=== PATIENT | female | born 1970 | race Hispanic/Latino ===

== ENCOUNTER 2022-09-29 01:11 | Emergency (ER) | payer SELFPAY ==
[2022-09-29 01:49] LABS: Absolute Lymphocytes (CBC) 1.8 K/uL (0.7-4.9); Hematocrit 31.4 % (36.0-45.0); Lymphocytes % 28.4 % (15.3-44.8); MCV 83.2 fL (80-100); MPV 8.1 fL (7.6-11.3); RBC Red Blood Cell Count 3.77 M/uL (3.86-4.86)
[2022-09-29] MEDS ORDERED: MORPHINE 4 MG/ML SYR ONE (01:53)
[2022-09-29] MEDS ORDERED: ONDANSETRON 4 MG/2 ML VIAL ONE (01:53)
[2022-09-29] MEDS ORDERED: MAGNES/ALUMIN/SIMET 30ML UCUP ONE (01:53)
[2022-09-29] MEDS ORDERED: LIDOCAINE VISCOUS 2% SOLN 15 ML UDC ONE (01:54)
[2022-09-29] MEDS ORDERED: NA CHLORIDE 0.9% 1,000 ML ONE (01:54)
[2022-09-29] MEDS ORDERED: FAMOTIDINE 20 MG/2 ML VIAL IV ONE (01:54)
[2022-09-29 02:08] LABS: Albumin 3.4 g/dL (3.4-5.0); Bilirubin Total 0.3 mg/dL (0.2-1.0); Potassium 3.7 mEq/L (3.5-5.1); Protein, Total 8.6 g/dL (6.4-8.2)
[2022-09-29 03:04] LABS: Specific Gravity 1.028 (1.005-1.030); Urine Bacteria >50 /HPF (<20); Urine Bilirubin NEGATIVE (Negative); Urine Blood Negative (Negative); Urine Clarity Turbid (Clear); Urine Color Yellow (Yellow); Urine Glucose 1+ (Negative); Urine Mucus 4+ /HPF (None Seen); Urine Protein 2+ (Negative); Urine Urobilinogen 1+ (Normal)
--- NOTE | 2022-09-29 04:24 | EDPHYS ---
Physician Documentation [facility] Name: Jorje Roque Age: 52 yrs Sex: Female : 1970 Arrival Date: 09/29/2022 Time: 01:11 Bed 16 Private MD: ED Physician Teddy Schulz HPI: 09/29 01:41 This 52 yrs old Female presents to ER via Ambulatory with complaints of rt Abdominal Pain, Nausea. 01:41 Patient with history of diabetes and hyperlipidemia presents to the ED with a left rt upper quadrant pain for the past 3 days. It does radiate to the left flank. She has not had similar symptoms previously. Patient states that she has been unable to eat due to the nausea. She has not had any vomiting. She denies any urinary symptoms, acute complaints. Symptoms are moderate in severity, no other aggravating or alleviating factors.. 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 - Social history:: Smoking status: Patient denies any tobacco usage or history of. - Family history:: not pertinent. ROS: 01:41 Constitutional: Negative for fever, chills, and weight loss, Neck: Negative for injury, rt pain, and swelling, Cardiovascular: Negative for chest pain, palpitations, and edema, Respiratory: Negative for shortness of breath, cough, wheezing, and pleuritic chest pain, MS/Extremity: Negative for injury and deformity, Skin: Negative for injury, rash, and discoloration, Neuro: Negative for headache, weakness, numbness, tingling, and seizure, Psych: Negative for depression, anxiety, suicide ideation, homicidal ideation, and hallucinations. 01:41 Abdomen/GI: Positive for abdominal pain, nausea. Exam: 01:46 Constitutional: This is a well developed, well nourished patient who is awake, alert, rt and in no acute distress. Head/Face: Normocephalic, atraumatic. Chest/axilla: Normal chest wall appearance and motion. Nontender with no deformity. No lesions are appreciated. Cardiovascular: Regular rate and rhythm with a normal S1 and S2. No gallops, murmurs, or rubs. Normal PMI, no JVD. No pulse deficits. Respiratory: Lungs have equal breath sounds bilaterally, clear to auscultation and percussion. No rales, rhonchi or wheezes noted. No increased work of breathing, no retractions or nasal flaring. Back: No spinal tenderness. No costovertebral tenderness. Full range of motion. Skin: Warm, dry with normal turgor. Normal color with no rashes, no lesions, and no evidence of cellulitis. MS/ Extremity: Pulses equal, no cyanosis. Neurovascular intact. Full, normal range of motion. Neuro: Awake and alert, GCS 15, oriented to person, place, time, and situation. Cranial nerves II-XII grossly intact. Motor strength 5/5 in all extremities. Sensory grossly intact. Cerebellar exam normal. Normal gait. Psych: Awake, alert, with orientation to person, place and time. Behavior, mood, and affect are within normal limits. 01:46 Abdomen/GI: Tenderness to the left upper quadrant without guarding, rebound, distention. 03:12 ECG was reviewed by the Attending Physician. rt Vital Signs: 01:20 BP 138 / 83; Pulse 86; Resp 16 S; Pulse Ox 99% on R/A; ha1 01:33 BP 138 / 83; Pulse 88; Resp 14; Temp 98.8; Pulse Ox 99% ; Height 5 ft. 2 in. ; Pain vc1 10/10; 02:00 BP 153 / 76; Pulse 81; Resp 18 S; Pulse Ox 99% on R/A; ha1 02:10 BP 143 / 75; Pulse 80; Resp 16 S; Pulse Ox 97% on R/A; ha1 03:00 BP 139 / 69; Pulse 85; Resp 16 S; Pulse Ox 98% on R/A; ha1 04:00 BP 130 / 69; Pulse 85; Resp 16 S; Pulse Ox 98% on R/A; ha1 01:33 Pain Scale: Adult vc1 MDM: 01:20 Patient medically screened. rt 04:25 Differential diagnosis: gastroenteritis, Gastritis, pancreatitis, cholecystitis, UTI, rt pyelonephritis, ureteral calculus acute coronary syndrome. Data reviewed: vital signs, nurses notes, lab test result(s), EKG, radiologic studies. I considered the following discharge prescriptions or medication management in the emergency department Medications were administered in the Emergency Department. See MAR. Independent interpretation of the following test(s) in the Emergency Department CT Scan: My interpretation is No obstruction seen on my interpretation the CT scan images. Care significantly affected by the following chronic conditions: Diabetes. Counseling: I had a detailed discussion with the patient and/or guardian regarding: the historical points, exam findings, and any diagnostic results supporting the discharge/admit diagnosis, lab results, radiology results, the need for outpatient follow up. Response to treatment: the patient's symptoms have resolved after treatment. 09/29 01:28 Order name: CBC with Diff; Complete Time: 02:54 rt 09/29 01:28 Order name: CMP; Complete Time: 02:54 rt 09/29 01:28 Order name: Lipase; Complete Time: 02:54 rt 09/29 01:28 Order name: Urinalysis w/ reflexes; Complete Time: 03:06 rt 09/29 01:28 Order name: Troponin High Sensitivity; Complete Time: 02:54 rt 09/29 03:08 Order name: Urine Culture EDMS 09/29 01:28 Order name: CT Abd/Pelvis - IV Contrast Only rt 09/29 01:28 Order name: EKG; Complete Time: 01:29 rt 09/29 01:28 Order name: IV Saline Lock; Complete Time: 01:43 rt 09/29 01:28 Order name: Labs collected and sent; Complete Time: 01:43 rt 09/29 01:28 Order name: EKG - Nurse/Tech; Complete Time: 02:59 rt EC:12 Rate is 90 beats/min. Rhythm is regular, Normal Sinus Rhythm with No ectopy. QRS [place] rt is Normal. [place] interval is normal. QRS interval is normal. QT interval is normal. No Q waves. Clinical impression: NSR w/ Non-specific ST/T Changes. Administered Medications: 01:40 Drug: NS 0.9% IV 1000 ml Route: IV; Rate: 1 bolus; Site: right antecubital; ha1 04:44 Follow up: Response: No adverse reaction; IV Status: Completed infusion; IV Intake: ha1 1000ml 01:45 Drug: morphine IVP or IV 4 mg Route: IVP; Infused Over: 4 mins; Site: right antecubital;ha1 02:10 Follow up: Response: No adverse reaction; Pain is decreased; RASS: Alert and Calm (0) ha1 01:50 Drug: Famotidine IVP 20 mg Route: IVP; Site: right antecubital; ha1 02:10 Follow up: Response: No adverse reaction; Nausea is decreased ha1 01:56 Drug: Ondansetron IVP 4 mg Route: IVP; Site: right antecubital; ha1 02:10 Follow up: Response: No adverse reaction; Nausea is decreased ha1 02:18 Drug: GI Cocktail without - (Maalox PO Suspension 30 ml, Lidocaine Mucous ha1 Membrane Liquid 2 % 15 ml) Route: PO; 02:40 Follow up: Response: No adverse reaction ha1 Disposition Summary: 09/29/22 04:23 Discharge Ordered Location: Home rt Problem: new rt Symptoms: have improved rt Condition: Stable rt Diagnosis - UTI/ Urinary tract infection, site not specified rt Followup: rt - With: Private Physician - When: 2 - 3 days - Reason: Discharge Instructions: - Discharge Summary Sheet rt - Urinary Tract Infection, Adult rt Forms: - Medication Reconciliation Form rt - Thank You Letter rt - Antibiotic Education rt - Prescription Opioid Use rt Prescriptions: - ondansetron 4 mg Oral Tablet,disintegrating - take 1 tablet by ORAL route every 6 hours as needed for nausea and vomiting; 15 rt tablet; Refills: 0, Product Selection Permitted - cefpodoxime 200 mg Oral Tablet - take 1 tablet by ORAL route every 12 hours with food; 14 tablet; Refills: 0, rt Product Selection Permitted Signatures: Dispatcher [employer] Martita Hoyos RN RN vc1 Monika Thomson RN RN ha1 Teddy Schulz MD MD rt
--- NOTE | 2022-09-29 04:24 | ER ---
Nurse's Notes [facility] Name: Jorje Roque Age: 52 yrs Sex: Female : 1970 Arrival Date: 09/29/2022 Time: 01:11 Bed 16 Private MD: Diagnosis: UTI/ Urinary tract infection, site not specified Presentation: 09/29 01:33 Chief complaint: Patient states: "I have had bad stomach pain for the last 3 days but vc1 tonight it hurts really bad. I'm also nauseous.". Coronavirus screen: Vaccine status: Patient reports being unvaccinated. Client denies travel out of the [place] in the last 14 days. At this time, the client does not indicate any symptoms associated with coronavirus-19. Ebola Screen: Patient negative for fever greater than or equal to 101.5 degrees Fahrenheit, and additional compatible Ebola Virus Disease symptoms Patient denies exposure to infectious person. Patient denies travel to an Ebola-affected area in the 21 days before illness onset. No symptoms or risks identified at this time. Initial Sepsis Screen: Does the patient meet any 2 criteria? No. Patient's initial sepsis screen is negative. Does the patient have a suspected source of infection? No. Patient's initial sepsis screen is negative. Risk Assessment: Do you want to hurt yourself or someone else? Patient reports no desire to harm self or others. Onset of symptoms was September 26, 2022. 01:33 Method Of Arrival: Ambulatory vc1 01:33 Acuity: VINNIE 3 vc1 Triage Assessment: 01:37 General: Appears in no apparent distress. uncomfortable, ill, Behavior is calm, vc1 cooperative, appropriate for age. Pain: Complains of pain in left upper quadrant Pain does not radiate. Pain currently is 10 out of 10 on a pain scale. Quality of pain is described as sharp, Pain began gradually, 2-3 days ago. EENT: No deficits noted. No signs and/or symptoms were reported regarding the EENT system. Neuro: Level of Consciousness is awake, alert, obeys commands, Oriented to person, place, time, situation, Appropriate for age. Cardiovascular: No deficits noted. Respiratory: Airway is patent Respiratory effort is even, unlabored, Respiratory pattern is regular, symmetrical. GI: Reports upper abdominal pain, intolerance of fluids, intolerance of food, nausea, normal bowel habits. GI: No deficits noted. No signs and/or symptoms were reported involving the gastrointestinal system. : No deficits noted. No signs and/or symptoms were reported regarding the genitourinary system. Derm: No deficits noted. No signs and/or symptoms reported regarding the dermatologic system. Musculoskeletal: No deficits noted. No signs and/or symptoms reported regarding the musculoskeletal system. 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 - Social history:: Smoking status: Patient denies any tobacco usage or history of. - Family history:: not pertinent. Screenin:39 [facility] ED Fall Risk Assessment (Adult) History of falling in the last 3 months, vc1 including since admission No falls in past 3 months (0 pts) Confusion or Disorientation No (0 pts) Intoxicated or Sedated No (0 pts) Impaired Gait No (0 pts) Mobility Assist Device Used No (0 pt) Altered Elimination No (0 pt) Score/Fall Risk Level 0 - 2 = Low Risk Oriented to surroundings, Maintained a safe environment, Educated pt \\T\\ family on fall prevention, incl call for assistance when getting out of bed. Abuse screen: Denies threats or abuse. Nutritional screening: No deficits noted. Tuberculosis screening: No symptoms or risk factors identified. Assessment: 01:18 General: Appears uncomfortable, Behavior is cooperative, crying. Pain: Complains of ha1 pain in left upper quadrant Pain does not radiate. Pain currently is 10 out of 10 on a pain scale. Quality of pain is described as burning, throbbing. Neuro: Level of Consciousness is awake, alert, obeys commands, Oriented to person, place, time, situation. Cardiovascular: Capillary refill < 3 seconds Patient's skin is warm and dry. Respiratory: Airway is patent Respiratory effort is even, unlabored, Respiratory pattern is regular, symmetrical. GI: Abdomen is flat, non-distended, Bowel sounds present X 4 quads. Abd is soft and non tender X 4 quads. Reports upper abdominal pain. : No signs and/or symptoms were reported regarding the genitourinary system. Derm: Skin is pink, warm \\T\\ dry. Musculoskeletal: Circulation, motion, and sensation intact. Range of motion: intact in all extremities. 02:18 Reassessment: Patient and/or family updated on plan of care and expected duration. Pain ha1 level reassessed. Patient is alert, oriented x 3, equal unlabored respirations, skin warm/dry/pink. Patient denies pain at this time. Patient states feeling better. Patient states symptoms have improved. 03:15 Reassessment: Patient and/or family updated on plan of care and expected duration. Pain ha1 level reassessed. Patient is alert, oriented x 3, equal unlabored respirations, skin warm/dry/pink. Patient denies pain at this time. Patient states feeling better. Patient states symptoms have improved. 04:15 Reassessment: Patient and/or family updated on plan of care and expected duration. Pain ha1 level reassessed. Patient is alert, oriented x 3, equal unlabored respirations, skin warm/dry/pink. Patient denies pain at this time. Vital Signs: 01:20 BP 138 / 83; Pulse 86; Resp 16 S; Pulse Ox 99% on R/A; ha1 01:33 BP 138 / 83; Pulse 88; Resp 14; Temp 98.8; Pulse Ox 99% ; Height 5 ft. 2 in. ; Pain vc1 10/10; 02:00 BP 153 / 76; Pulse 81; Resp 18 S; Pulse Ox 99% on R/A; ha1 02:10 BP 143 / 75; Pulse 80; Resp 16 S; Pulse Ox 97% on R/A; ha1 03:00 BP 139 / 69; Pulse 85; Resp 16 S; Pulse Ox 98% on R/A; ha1 04:00 BP 130 / 69; Pulse 85; Resp 16 S; Pulse Ox 98% on R/A; ha1 01:33 Pain Scale: Adult vc1 ED Course: 01:14 Patient arrived in ED. mr 01:14 Teddy Schulz MD is Attending Physician. rt 01:18 Patient has correct armband on for positive identification. Bed in low position. Call ha1 light in reach. Side rails up X 1. Adult w/ patient. 01:29 Monika Thomson RN is Primary Nurse. ha1 01:30 No provider procedures requiring assistance completed. Inserted saline lock: 20 gauge ha1 in right antecubital area, using aseptic technique. Blood collected. 01:36 Triage completed. vc1 01:38 Arm band placed on left wrist. vc1 01:43 CBC with Diff Sent. ha1 01:43 CMP Sent. ha1 01:43 Lipase Sent. ha1 01:43 Urinalysis w/ reflexes Sent. ha1 02:48 CT Abd/Pelvis - IV Contrast Only In Process Unspecified. EDMS 04:43 IV discontinued, intact, bleeding controlled, No redness/swelling at site. Pressure ha1 dressing applied. Administered Medications: 01:40 Drug: NS 0.9% IV 1000 ml Route: IV; Rate: 1 bolus; Site: right antecubital; ha1 04:44 Follow up: Response: No adverse reaction; IV Status: Completed infusion; IV Intake: ha1 1000ml 01:45 Drug: morphine IVP or IV 4 mg Route: IVP; Infused Over: 4 mins; Site: right antecubital;ha1 02:10 Follow up: Response: No adverse reaction; Pain is decreased; RASS: Alert and Calm (0) ha1 01:50 Drug: Famotidine IVP 20 mg Route: IVP; Site: right antecubital; ha1 02:10 Follow up: Response: No adverse reaction; Nausea is decreased ha1 01:56 Drug: Ondansetron IVP 4 mg Route: IVP; Site: right antecubital; ha1 02:10 Follow up: Response: No adverse reaction; Nausea is decreased ha1 02:18 Drug: GI Cocktail without - (Maalox PO Suspension 30 ml, Lidocaine Mucous ha1 Membrane Liquid 2 % 15 ml) Route: PO; 02:40 Follow up: Response: No adverse reaction ha1 Medication: 04:43 VIS not applicable for this client. ha1 Intake: 04:44 IV: 1000ml; Total: 1000ml. ha1 Outcome: 04:23 Discharge ordered by . rt 04:42 Discharged to home ambulatory, with family. ha1 04:42 Condition: stable 04:42 Discharge instructions given to patient, family, Instructed on discharge instructions, follow up and referral plans. medication usage, Demonstrated understanding of instructions, follow-up care, medications, Prescriptions given X 2. 04:46 Patient left the ED. ha1 Signatures: Dispatcher [employer] EDPR Ferny Shelia mr Martita Nicole RN RN vc1 Monika Thomson RN RN ha1 Teddy Schulz MD MD rt
[2022-09-29 05:10] VITALS: TEMP 98.8
[2022-09-29 05:14] VITALS: O2SAT 98
[2022-09-29 05:15] VITALS: BP 130/69
--- NOTE | 2022-09-29 11:40 | RAD REPORT ---
EXAM DESCRIPTION: CT - Abdomen Pelvis W Contrast - 09/29/2022 6:37 am CLINICAL HISTORY: The patient is 52 years old and is Female; ABD PAIN TECHNIQUE: Axial computed tomography images of the abdomen and pelvis with intravenous contrast. S agittal and coronal reformatted images were created and reviewed. This CT exam was performed using one or more of the following dose reduction techniques: automated exposure control, adjustment of t he mA and/or kV according to patient size, and/or use of iterative reconstruction technique. COMPARISON: No relevant prior studies available. FINDINGS: Lung bases: Unremarkable. No mass. No consolidation. ABDOMEN: Liver: Unremarkable. No mass. Gallbladder and bile ducts: Unremarkable. No calcified stones. No ductal dilation. Pancreas: No findings to suggest acute pancreatitis. No mass visualized. No ductal dilation. Spleen: Unremarkable. No splenomegaly. Adrenals: Unremarkable. No mass. Kidneys and ureters: Unremarkable. No solid mass. No hydronephrosis. Stomach and bowel: No bowel dilatation or obstruction. No bowel wall thickening. PELVIS: Appendix: The visualized appendix is normal. No pericecal inflammation to suggest acute appendici tis. Bladder: Bladder is not well distended. No stones. Reproductive: Adhesions between the uterine fundus and anterior abdominal wall. ABDOMEN and PELVIS: Intraperitoneal space: Unremarkable. No free air. No significant fluid collection. Bones/joints: Multilevel vertebral Schmorl's nodes. No acute fracture visualized. No dislocation. Soft tissues: See above. Vasculature: Unremarkable. No abdominal aortic aneurysm. Lymph nodes: No pathologically enlarged lymph nodes. IMPRESSION: No acute obstructive or inflammatory process identified. Normal appendix. Electronically signed by: Laura Neal MD 09/29/2022 4:09 AM CDT Due to temporary technical issues with the PACS/Fluency reporting system, reports are being signed by the in house radiologists without review as a courtesy to insure prompt reporting. The interpreting radiologist is fully responsible for the content of the report.
--- NOTE | 2022-09-30 14:10 | EKG ---
Test Date: 2022-09-29 Test Time: 02:49:31 Courier Delivery Driver: FREDI MEASUREMENT RESULTS: Intervals: Rate: 90 IA: 158 QRSD: 78 QT: 360 QTc: 440 Union: P: 68 IA: 158 QRS: 21 T: 42 INTERPRETIVE STATEMENTS: Normal sinus rhythm Septal infarct, age undetermined Abnormal ECG No previous ECG available for comparison Electronically Signed On 09-30-22 14:08:26 CDT by Moises Denis
== END 2022-09-29 04:46 | disposition home or self-care (01) ==
LOC: ER 01:11
DX: N39.0 Urinary tract infection, site not specified (principal)
CPT/HCPCS: 36415; 74177; 80053; 81001; 83690; 84484; 85025; 87077; 87086; 87088; 87186; 93005; 96361; 96374; 96375; 99284; J2405; J7030; Q9967